=== PATIENT | male | born 1960 | race Caucasian/White ===

== ENCOUNTER 2020-03-17 03:58 | Inpatient (IN) | payer OTHER ==
[~2020-03-17] VITALS: Ht 170.2 cm; Wt 79.4 kg
[2020-03-17] MEDS ORDERED: ONDANSETRON HCL 4MG/2ML INJ IV STA (04:17)
[2020-03-17] MEDS ORDERED: SODIUM CHLORIDE 0.9% 1,000 ML IV ONE (04:31)
[2020-03-17 05:01] LABS: BASOPHILS % 0.5 % (0.0-2.0); EOSINOPHILS % 2.3 % (0.0-5.0); HEMATOCRIT. 43.3 % (42.0-52.0); HEMOGLOBIN. 14.7 g/dL (14.0-18.0); LYMPHOCYTES % 21.8 % (20.0-50.0); MEAN CORPUSCULAR HEMOGLOBIN 32.6 pg (28.0-32.0); MEAN CORPUSCULAR VOLUME 95.8 fL (80.0-94.0); MEAN PLATELET VOLUME 9.5 fl (7.4-10.4); NEUTROPHILS % 70.4 % (40.0-76.0); PLATELET 137 x1000/uL (130-400); RED BLOOD CELL COUNT 4.52 mill/uL (4.7-6.1); RED CELL DISTRIBUTION WIDTH 13.6 % (11.6-14.6)
[2020-03-17] MEDS ORDERED: METOPROLOL TARTRATE 5MG/5ML VIAL IV STA (05:04)
[2020-03-17 05:11] LABS: CHLORIDE 115 mEq/L (98-107)
[2020-03-17 05:12] LABS: INR 1.1; PROTHROMBIN TIME 11.9 sec (9.6-11.0)
[2020-03-17] MEDS ORDERED: CLONIDINE 0.1MG TABLET PO PRN (07:00)
[2020-03-17] MEDS ORDERED: MAGNESIUM/ALUMINUM HYDROXIDE/SIMETHICONE 30ML UDC PO PRN (07:00)
[2020-03-17] MEDS ORDERED: IPRATROPIUM/ALBUTEROL 0.5-3(2.5)MG/3ML NEB ORI PRN (07:00)
[2020-03-17] MEDS ORDERED: GUAIFENESIN 200MG/10ML SUGAR FREE UDC PO PRN (07:00)
[2020-03-17] MEDS ORDERED: DOCUSATE SODIUM 100MG CAPSULE PO PRN (07:00)
[2020-03-17] MEDS ORDERED: KETOROLAC 15MG/ML VIAL IV PRN (07:00)
[2020-03-17] MEDS ORDERED: ACETAMINOPHEN 325MG TABLET PO PRN ×2 (07:00)
[2020-03-17] MEDS ORDERED: NITROGLYCERIN 0.4MG TABLET SL SL PRN (07:00)
[2020-03-17] MEDS ORDERED: ONDANSETRON HCL 4MG/2ML INJ IV PRN (07:00)
[2020-03-17] MEDS: DILTIAZEM HCL 60MG TABLET PO SCH ×3 (07:50→18:00)
[2020-03-17] MEDS: FAMOTIDINE 20MG TABLET PO SCH ×2 (08:03→21:45)
[2020-03-17] MEDS: ASCORBIC ACID 500 MG TABLET PO SCH ×2 (08:03→21:45)
[2020-03-17] MEDS: GUAIFENESIN/DM 600MG/30MG ER TAB 12HR PO SCH ×2 (08:03→21:45)
[2020-03-17] MEDS: ZINC SULFATE 220 MG ( 50 ) CAPSULE PO SCH (08:03)
[2020-03-17] MEDS: ASPIRIN 325MG EC TABLET PO SCH (08:03)
[2020-03-17 08:19] LABS: CLARITY URINE CLEAR (CLEAR); COLOR URINE YELLOW (YELLOW); KETONES URINE NEGATIVE (NEGATIVE); LEUKOCYTE ESTERASE URINE NEGATIVE (NEGATIVE); NITRITE URINE NEGATIVE (NEGATIVE); OCCULT BLOOD URINE TRACE (NEGATIVE); PROTEIN URINE 3+ (NEGATIVE); SPECIFIC GRAVITY URINE 1.039 (1.005-1.030)
[2020-03-17] MEDS: FUROSEMIDE 20MG/2ML VIAL IVP SCH ×2 (08:54→21:45)
[2020-03-17] MEDS: SPIRONOLACTONE 25MG TABLET PO SCH ×2 (08:55→22:00)
[2020-03-17 08:57] LABS: *AMPHETAMINES SCREEN URINE NEGATIVE (NEGATIVE); *BARBITURATES SCREEN URINE NEGATIVE (NEGATIVE); *BENZODIAZEPINES SCREEN URINE NEGATIVE (NEGATIVE); *COCAINE SCREEN URINE NEGATIVE (NEGATIVE)
[2020-03-17 08:58] LABS: CANNABINOID URINE SCREEN NEGATIVE (NEGATIVE); METHADONE URINE SCREEN NEGATIVE (NEGATIVE); OPIATES URINE SCREEN NEGATIVE (NEGATIVE); PHENCYCLIDINE URINE SCREEN NEGATIVE (NEGATIVE)
[2020-03-17] MEDS: ENOXAPARIN 80MG/0.8ML SYR SUBCUT SCH ×2 (09:03→22:00)
[2020-03-17 17:58] LABS: CREATINE KINASE 140 IU/L (39-308); CREATINE KINASE MB FRACTION 2.4 ng/mL (0.5-3.6)
[2020-03-17] MEDS ORDERED: ZOLPIDEM TARTRATE 5MG TABLET PO PRN (21:00)
[2020-03-17 23:30] VITALS: BP 134/84
[2020-03-17 23:53] LABS: CREATINE KINASE 153 IU/L (39-308)
[2020-03-17 23:55] LABS: CREATINE KINASE MB FRACTION 2.5 ng/mL (0.5-3.6)
[2020-03-18] MEDS ORDERED: TRAZ-251 PO
[2020-03-18] MEDS: DILTIAZEM HCL 60MG TABLET PO SCH ×4 (00:07→17:01)
[2020-03-18 04:00] VITALS: BP 111/60
[2020-03-18 07:19] LABS: BASOPHILS % 0.3 % (0.0-2.0); EOSINOPHILS % 1.3 % (0.0-5.0); HEMATOCRIT. 40.3 % (42.0-52.0); HEMOGLOBIN. 13.8 g/dL (14.0-18.0); LYMPHOCYTES % 14.4 % (20.0-50.0); MEAN CORPUSCULAR HEMOGLOBIN 32.6 pg (28.0-32.0); MEAN PLATELET VOLUME 9.8 fl (7.4-10.4); MONOCYTES % 6.2 % (2.0-8.0); NEUTROPHILS % 77.8 % (40.0-76.0); PLATELET 126 x1000/uL (130-400); RED BLOOD CELL COUNT 4.24 mill/uL (4.7-6.1); RED CELL DISTRIBUTION WIDTH 13.9 % (11.6-14.6)
[2020-03-18 07:29] LABS: CHLORIDE 110 mEq/L (98-107)
[2020-03-18 07:41] LABS: LDL CHOLESTEROL 86 mg/dL (5-100)
[2020-03-18 07:42] LABS: TOTAL IRON BINDING CAPACITY 302 ug/dL (250-450)
[2020-03-18 07:43] LABS: HDL CHOLESTEROL 32 mg/dL (40-59)
[2020-03-18 07:57] LABS: VITAMIN B12 SERUM 1472 pg/mL (211-911)
[2020-03-18] MEDS: FUROSEMIDE 20MG/2ML VIAL IVP SCH ×2 (08:50→21:28)
[2020-03-18] MEDS: ZINC SULFATE 220 MG ( 50 ) CAPSULE PO SCH (08:50)
[2020-03-18] MEDS: ASPIRIN 325MG EC TABLET PO SCH (08:50)
[2020-03-18] MEDS: GUAIFENESIN/DM 600MG/30MG ER TAB 12HR PO SCH ×2 (08:51→21:27)
[2020-03-18] MEDS: ENOXAPARIN 80MG/0.8ML SYR SUBCUT SCH ×2 (08:51→21:00)
[2020-03-18] MEDS: SPIRONOLACTONE 25MG TABLET PO SCH ×2 (08:51→21:33)
[2020-03-18] MEDS: FAMOTIDINE 20MG TABLET PO SCH ×2 (08:51→21:27)
[2020-03-18] MEDS: ASCORBIC ACID 500 MG TABLET PO SCH ×2 (08:51→21:33)
[2020-03-18 08:59] VITALS: BP 111/63
[2020-03-18 12:25] VITALS: BP 118/72
[2020-03-18] MEDS: LORAZEPAM 0.5MG TABLET PO PRN ×2 (16:03→22:37)
[2020-03-18 16:17] VITALS: BP 113/80
[2020-03-18 20:00] VITALS: BP 120/75
[2020-03-19] VITALS: BP 138/92
[2020-03-19] MEDS: DILTIAZEM HCL 60MG TABLET PO SCH ×3 (00:26→11:30)
[2020-03-19 04:00] VITALS: BP 120/75
[2020-03-19 08:00] VITALS: BP 122/69
[2020-03-19] MEDS: ASPIRIN 325MG EC TABLET PO SCH (08:17)
[2020-03-19] MEDS: GUAIFENESIN/DM 600MG/30MG ER TAB 12HR PO SCH (08:17)
[2020-03-19] MEDS: ZINC SULFATE 220 MG ( 50 ) CAPSULE PO SCH (08:17)
[2020-03-19] MEDS: ASCORBIC ACID 500 MG TABLET PO SCH (08:17)
[2020-03-19] MEDS: FAMOTIDINE 20MG TABLET PO SCH (08:17)
[2020-03-19] MEDS: FUROSEMIDE 20MG/2ML VIAL IVP SCH (08:17)
[2020-03-19] MEDS: SPIRONOLACTONE 25MG TABLET PO SCH (08:17)
[2020-03-19] MEDS: ENOXAPARIN 80MG/0.8ML SYR SUBCUT SCH (08:18)
[2020-03-19 11:36] VITALS: BP 122/80
[2020-03-19 12:00] VITALS: BP 122/80
== END 2020-03-19 12:30 | disposition home or self-care (01) | DRG 291 ==
LOC: ER 03:58 → 5WST 05:07 → EDBEDREQSVC 07:35 → EDBEDREQTM 19:30 → ENRESERV 22:56
PROVIDERS: ADMIT Internal Medicine; ATTEND Internal Medicine
DX: I50.43 Acute on chronic combined systolic (congestive) and diastolic (congestive) heart failure (principal); J96.00 Acute respiratory failure, unspecified whether with hypoxia or hypercapnia; I48.91 Unspecified atrial fibrillation; F10.11 Alcohol abuse, in remission; R74.0 Nonspecific elevation of levels of transaminase and lactic acid dehydrogenase [LDH]; E83.51 Hypocalcemia; Z79.01 Long term (current) use of anticoagulants; I25.2 Old myocardial infarction; Z79.899 Other long term (current) drug therapy; Z20.828 Contact with and (suspected) exposure to other viral communicable diseases
CPT/HCPCS: 36415; 71045; 80048; 80053; 80061; 80305; 81003; 82550; 82553; 82607; 83036; 83540; 83550; 83605; 83880; 84145; 84443; 84484; 85025; 93005; 93306; 93970; 99291; J1650; J1940; J2405; J3490; J7030; C9803-CS; U0003-CS